=== PATIENT | female | born 1975 | race African-American/Black ===

== ENCOUNTER 2019-07-23 18:40 | Emergency (ER) | payer OTHER ==
[~2019-07-23] VITALS: Ht 165.1 cm; Wt 64.9 kg
[2019-07-23 18:41] VITALS: BP 142/88
[2019-07-23 19:18] LABS: ABSOLUTE NEUTROPHILS 9.1 thou/uL (1.4-8.2); BASOPHILS 0.6 % (0.0-2.0); EOSINOPHILS 0.5 % (0.0-3.0); HEMATOCRIT 38.2 % (37.0-47.0); HEMOGLOBIN 12.7 gm/dL (12.0-15.0); LYMPHOCYTES 21.6 % (24.0-44.0); MCH 28.9 pg (26.0-34.0); MCHC 33.2 g/dL (28.0-37.0); MCV 87.1 fL (80.0-100.0); MONOCYTES 4.4 % (1.0-8.0); PLATELET COUNT 357 thou/uL (150-400); POLYS 72.9 % (36.0-66.0); RBC 4.39 mil/uL (4.20-5.00); RDW 13.9 % (10.5-14.5); WBC 12.4 thou/uL (4.0-11.0)
[2019-07-23 19:30] LABS: ANION GAP 11 mmol/L (7-16); BUN 9 mg/dL (7-18); CALCIUM 8.6 mg/dL (8.5-10.1); CHLORIDE 104 mmol/L (98-107); CO2 24 mmol/L (21-32); CREATININE 0.8 mg/dL (0.6-1.0); GLUCOSE 96 mg/dL (74-106); POTASSIUM 3.5 mmol/L (3.5-5.1); SODIUM 139 mmol/L (136-145)
[2019-07-23 19:40] LABS: ALBUMIN 3.3 g/dL (3.4-5.0); SGOT 19 U/L (15-37); SGPT 30 U/L (30-65); TOTAL BILIRUBIN 0.3 mg/dL (<0.1-1.0); TOTAL PROTEIN 7.6 g/dL (6.4-8.2); TROPONIN-I <0.06 ng/mL (<0.06)
[2019-07-23] MEDS ORDERED: NOHOMEMEDICATIONS (20:00)
--- NOTE | 2019-07-24 08:36 | EKG ---
[place] [address] [facility] [place] [address] ELECTROCARDIOGRAM REPORT Name: HENRIK ORTA Room #: DEP Severiano#: [id number] Admission: 07/23/19 Attend Phys: Discharge: 07/23/19 Date of : 75 Report #: [id number] THIS REPORT FOR: //name// [facility] ED Test Date: 2019-07-23 Test Time: 18:48:23 Pat Name: HENRIK ORTA Department: Room: Gender: F [employer] Supervisor: : [id number] Requested By: Darron Morales Order Number: [id number] MD: Trevor Adames Measurements Intervals [place] Rate: 94 P: 39 TX: 163 QRS: 7 QRSD: 84 T: 6 QT: 357 QTc: 447 Interpretive Statements Sinus rhythm Probable left atrial enlargement No previous ECG available for comparison Electronically Signed On 07-24-2019 8:36:35 CDT by Trevor Adames [email or web address] <ELECTRONICALLY SIGNED> By: Trevor Adames MD 07/24/19 0836 [id number] Trevor Adames MD /TORSTEN
== END 2019-07-23 20:25 | disposition home or self-care (01) ==
LOC: ER 18:40
PROVIDERS: Emergency Medicine
DX: R55 Syncope and collapse (principal); R19.7 Diarrhea, unspecified; R51 Headache